=== PATIENT | female | born 1965 ===

== ENCOUNTER 2016-09-17 15:48 | Observation (INO) | payer SELFPAY ==
[2016-09-17 15:58] VITALS: PULSE 79; RESP 17; TEMP 99.4; O2SAT 100
[2016-09-17] MEDS ORDERED: Sodium Chloride 0.9% 1,000 ML IV STA (16:14)
[2016-09-17] MEDS ORDERED: Iohexol 240 (50 ml) PO ONE (16:14)
[2016-09-17] MEDS ORDERED: Iohexol 240 (50 ml) ONE (16:20)
--- NOTE | 2016-09-17 16:41 | ED PDOC ---
HPI: Back Time Seen by Provider: 09/17/16 15:56 Chief Complaint (Nursing): Back Pain Chief Complaint (Provider): Back Pain History Per: Patient, Family History/Exam Limitations: no limitations Onset/Duration Of Symptoms: Persistent (2 weeks ) Current Symptoms Are (Timing): Still Present Quality Of Discomfort: "Pain" Additional Complaint(s): Ailyn Vaughn is a 51 y/o female presenting to the ER on 09/17/2016 with complaints of persistent right sided lower back pain for two weeks. Patient reports pain, which is atraumatic, was initially minimal. However, the pain began to worsen three days ago with radiation to her RLQ today, prompting her to seek medical evaluation. She stats the pain worsens with movement, specifically when standing up from a sitting position. She has not used any pain medications prior to arrival. She denies any nausea, vomiting, diarrhea, urinary or bowel incontinence, hematuria, or dysuria. Past Medical History Reviewed: Historical Data, Nursing Documentation, Vital Signs Vital Signs: Last Vital Signs Temp 99.4 F 09/17/16 15:51 Pulse 79 09/17/16 15:51 Resp 17 09/17/16 15:51 BP 162/100 H 09/17/16 15:51 Pulse Ox 100 09/17/16 15:51 - Medical History PMH: No Chronic Diseases - Surgical History Surgical History: No Surg Hx - Family History Family History: States: Unknown Family Hx - Social History Current smoker - smoking cessation education provided: No Alcohol: None Drugs: Denies - Allergies Allergies/Adverse Reactions: Allergies Allergy/AdvReac Type Severity Reaction Status Date / Time No Known Allergies Allergy Verified 09/17/16 15:51 Review of Systems ROS Statement: Except As Marked, All Systems Reviewed And Found Negative Gastrointestinal: Positive for: Abdominal Pain ((+) RLQ ). Negative for: Nausea , Vomiting, Diarrhea Genitourinary Female: Negative for: Dysuria, Incontinence, Hematuria Musculoskeletal: Positive for: Back Pain Physical Exam - Reviewed Nursing Documentation Reviewed: Yes Vital Signs Reviewed: Yes - Physical Exam Appears: Positive for: Non-toxic, No Acute Distress Head Exam: Positive for: ATRAUMATIC, NORMOCEPHALIC Skin: Positive for: Normal Color. Negative for: Rash Eye Exam: Positive for: Normal appearance Neck: Positive for: Normal, Painless ROM, Supple Cardiovascular/Chest: Positive for: Regular Rate, Rhythm. Negative for: Murmur Respiratory: Positive for: Normal Breath Sounds. Negative for: Wheezing, Respiratory Distress Gastrointestinal/Abdominal: Positive for: Normal Exam, Tenderness ((+) mild RLQ ) Back: Positive for: Normal Inspection. Negative for: L CVA Tenderness, R CVA Tenderness, Vertebral Tenderness, Muscle Spasm Extremity: Positive for: Normal ROM. Negative for: Deformity, Swelling Neurologic/Psych: Positive for: Alert, Oriented. Negative for: Motor/Sensory Deficits - Laboratory Results Result Diagrams: 09/17/16 17:00 09/17/16 17:00 - ECG O2 Sat by Pulse Oximetry: 100 Medical Decision Making Medical Decision Makin:57 Initial Impression- 51 y/o female with back pain Initial Plan- * CT ABD PELVIS PO & IV Contrast * CMP * CBC w/ differential * Iohexol 50 ml PO * Morphine 2 mg IVP * Sodium Chloride 1,000 ml IV * Zofran 4 mg IVP * Urinalysis Documented by Carlos Willis, acting as a scribe for Rubin Au PA-C All medical record entries made by the Scribe were at my direction and personally dictated by me. I have reviewed the chart and agree that the record accurately reflects my personal performance of the history, physical exam, medical decision making, and the department course for this patient. I have also personally directed, reviewed, and agree with the discharge instructions ED OBSERVATION Discharge: Yes Date of observation admission: 09/17/16 Time of observation admission: 16:19 - Observation admission statement Patient is being placed in observation because:: Secondary to extensive ED workup - Goals of Observation Goals of observation are:: Labs, imaging results, re-evaluation and disposition. - Progress Note Progress Note: 09/17/16 18:49 Pt. resting comfortably. Reports pain has improved as it is only present with movement. Pt. still pending CT. 09/17/16 20:33 CT abd/pelvis w/ PO and IV contrast: no evidence of acute process, fatty liver, mild bladder wall thickening Disposition - Clinical Impression Clinical Impression: UTI (urinary tract infection), Back pain - Patient ED Disposition Is Patient to be Admitted: No - Disposition Disposition: Routine/Home Disposition Time: 20:34 Condition: STABLE
[2016-09-17 17:07] LABS: BASO % 0.6 % (0.0-2.0); EOS # 0.1 K/uL (0.0-0.7); EOS % 1.7 % (0.0-4.0); HEMOGLOBIN 14.2 g/dL (12.0-16.0); LYMPH # 2.3 K/uL (1.0-4.3); LYMPH % 28.6 % (20.0-40.0); MEAN CELL VOLUME 90.2 fl (81.0-99.0); MEAN CORPUSCULAR HEMOGLOBIN 29.9 pg (27.0-31.0); MEAN CORPUSCULAR HGB CONC 33.2 g/dL (33.0-37.0); MEAN PLATELET VOLUME 7.5 fl (7.2-11.7); MONO # 0.5 K/uL (0.0-0.8); MONO % 6.5 % (0.0-10.0); NEUT # 5.1 K/uL (1.8-7.0); NEUT % 62.6 % (50.0-75.0); RBC 4.75 Mil/uL (3.80-5.20); RED CELL DISTRIBUTION WIDTH 12.9 % (11.5-14.5); WHITE BLOOD COUNT 8.2 K/uL (4.8-10.8)
[2016-09-17 17:15] LABS: ALB/GLOB RATIO 1.4 (1.0-2.1); ALBUMIN 4.6 g/dL (3.5-5.0); ALT/SGPT 55 U/L (9-52); AST/SGOT 27 U/L (14-36); BLOOD UREA NITROGEN 11 mg/dl (7-17); CALCIUM 9.6 mg/dL (8.4-10.2); GFR AFRICAN-AMERICAN > 60; GFR NON-AFRICAN AMERICAN > 60
[2016-09-17 17:22] LABS: SQUAMOUS EPITHIAL < 1 /hpf (0-5); URINE BILIRUBIN NEGATIVE (NEGATIVE); URINE BLOOD NEGATIVE (NEGATIVE); URINE CLARITY CLEAR (Clear); URINE COLOR STRAW (YELLOW); URINE GLUCOSE (UA) NEG (Normal); URINE LEUKOCYTE ESTERASE TRACE Leu/uL (Negative); URINE NITRATE NEGATIVE (NEGATIVE); URINE PROTEIN NEGATIVE (NEGATIVE); URINE UROBILINOGEN 0.2-1.0 mg/dL (0.2-1.0)
[2016-09-17 17:23] LABS: URINE BACTERIA FEW (<OCC)
[2016-09-17] MEDS ORDERED: Sodium Chloride 0.9% 50 ML IV ONE (18:47)
[2016-09-17] MEDS ORDERED: Iohexol 300 100 ML IJ ONE (18:47)
--- NOTE | 2016-09-17 20:18 | CT ---
EXAM: CT Abdomen and Pelvis With Intravenous Contrast CLINICAL HISTORY: 51 years old, female; Pain; Abdominal pain; Localized; Right; Patient HX: Rlq abd pain and r lower back pain x 2 weeks. Worst pain 3 days ago TECHNIQUE: Axial computed tomography images of the abdomen and pelvis with intravenous contrast. This CT exam was performed using one or more of the following dose reduction techniques: automated exposure control, adjustment of the mA and/or kV according to patient size, and/or use of iterative reconstruction technique. Coronal and sagittal reformatted images were created and reviewed. CONTRAST: 80 mL of OMNIPAQUE administered intravenously. EXAM DATE/TIME: 09/17/2016 4:13 PM COMPARISON: No relevant prior studies available. FINDINGS: LIMITATIONS: Mild streak/motion artifact. LOWER THORAX: No infiltrate seen in the lung bases. ABDOMEN: LIVER: Fatty infiltration of the liver. GALLBLADDER AND BILE DUCTS: No CT evidence of acute cholecystitis. No evidence of significant biliary ductal dilatation. PANCREAS: No CT evidence of acute pancreatitis. SPLEEN: No acute abnormality of the spleen identified. ADRENALS: No acute abnormality of the adrenal glands identified. KIDNEYS AND URETERS: No acute abnormality of the kidneys identified. No evidence of significant hydrouereteronephrosis. STOMACH AND BOWEL: No acute abnormality of the stomach, small bowel or colon identified. No evidence of bowel obstruction. APPENDIX: Appendix is seen, and is within normal limits in appearance. PELVIS: BLADDER: Mild thickening of the bladder wall. REPRODUCTIVE:No acute abnormality of the reproductive organs is seen. No acute abnormality of the uterus identified. No evidence of large adnexal masses. ABDOMEN and PELVIS: INTRAPERITONEAL SPACE: No evidence of free intraperitoneal air or fluid. BONES/JOINTS: No acute fractures or other acute bony abnormality noted. SOFT TISSUES: No acute abnormality of the visualized soft tissues is seen. VASCULATURE: No evidence of abdominal aortic aneurysm. No evidence of periaortic hemorrhage. LYMPH NODES: No evidence of diffuse lymphadenopathy. IMPRESSION: - Mild bladder wall thickening. This is a nonspecific finding, but can be seen with cystitis. Recommend clinical correlation. - Otherwise, no evidence of significant acute process. - Fatty infiltration of the liver. - See above for remaining findings.
[2016-09-17 21:00] VITALS: BP 132/91
== END 2016-09-17 20:34 | disposition home or self-care (01) ==
LOC: H.ER 15:48 → H.EROBSV 16:19
PROVIDERS: ADMIT Emergency Medicine; ATTEND Emergency Medicine
DX: N39.0 Urinary tract infection, site not specified (principal); M54.5 Low back pain
CPT/HCPCS: 36415; 74177; 80053; 81003; 85025; 87040; 96361; 96374; 96375; 99282; G0378; J2270; J2405; J7040; Q9966; Q9967